=== PATIENT | female | born 1960 | race Caucasian/White ===

== ENCOUNTER 2017-01-08 14:27 | Emergency (ER) | payer OTHER, MEDICARE ==
[~2017-01-08] VITALS: Ht 157.5 cm; Wt 68.0 kg
[~2017-01-08 14:27] MED LIST: ALPRAZOLAM0.5 M4 PO; ASPIRIN81 M4 PO; ATIVAN0.5 MG PO; ATIVAN1 MG PO; ATORVASTATIN CA80 M1 PO; BUPROPION XL150 MG PO; COUMADIN 3 MG TA3 MG PO; COUMADIN 7.5 M7.5 MG PO; COUMADIN2.5 M1 PO; DILAUDID2 M1 PO; DOCUSATE SODIU100 MG PO; ESTRADIOL2 M1 PO; LAMICTAL100 M2 PO; LAMICTAL150 MG PO; LAMOTRIGINE100 M2 PO; LIPITOR40 M1 PO; METHADONE HYDROC5 MG PO; METHADONE PO; OXYCODONE-ACET1 EACH PO; PERCOCET 325 MG1 TA2 PO; PERCOCET 325 MG1 TAB PO; PERCOCET 5-3251 EACH PO; PLAVIX75 M1 PO; PREMARIN 1.251.25 MG PO; ROXICODONE15 MG PO; ROXICODONE30 MG PO; ROXICODONE5 MG PO; TYLENOL TAB 32325 MG PO; VITAMIN D250000 UNIT PO; WELLBUTRIN XL300 M2 PO; WELLBUTRIN XL300 MG PO; XANAX XR1 M1 PO; XANAX0.5 MG PO; XANAX1 M1 PO
--- NOTE | 2017-01-08 14:41 | ED UPPER/LOWER EXTREMITY COMPL ---
History of Present Illness General Chief Complaint: Lower Extremity Problems Stated Complaint: BILATERAL LEG PAIN S/P R LAZARA SURGURY 10/28 Source: patient Exam Limitations: no limitations Vital Signs & Intake/Output Vital Signs & Intake/Output Vital Signs Date Time Temp Pulse Resp B/P Pulse O2 O2 Flow FiO2 Ox Delivery Rate 01/08 1542 97.6 77 18 97 Room Air 01/08 1538 Room Air 01/08 1535 112/86 01/08 1459 96 Room Air 01/08 1431 98.1 87 18 153/100 96 Room Air Allergies Coded Allergies: tramadol (From ULTRA) (UNKNOWN 08/28/16) Reconcile Medications Alprazolam 0.5 MG TABLET 1 TAB PO BIDP PRN ANXIETY (Reported) Alprazolam (Xanax) 1 MG TABLET 2 TAB PO AT BEDTIME SLEEP HELP (Reported) Alprazolam (Xanax XR) 1 MG TAB.ER.24H 1 TAB PO BID ANXIETY (Reported) Atorvastatin Calcium (Lipitor) 40 MG TABLET 1 TAB PO DAILY heart health Bupropion HCl (Wellbutrin XL) 300 MG TAB.ER.24H 1 TAB PO DAILY MENTAL HEALTH (Reported) Bupropion HCl (Bupropion XL) 150 MG TAB.ER.24H 1 TAB PO QPM MENTAL HEALTH ( Reported) Ergocalciferol (Vitamin D2) (Vitamin D2) 50,000 UNIT CAPSULE 1 CAP PO QW vitamin deficiency (Reported) Estradiol 2 MG TABLET 1 TAB PO DAILY woman health (Reported) Hydromorphone HCl (Dilaudid) 2 MG TABLET 1-2 TAB PO Q4-6H PRN PAIN Lamotrigine 100 MG TABLET 1.5 TAB PO BID MENTAL HEALTH (Reported) [METHADONE] 100 MG PO D UNKNOWN (Reported) Warfarin Sodium (Coumadin) 2.5 MG TABLET 1-3 TAB PO DAILY ANTICOAGULATION PLEASE AWAIT SPECIFIC INSTRUCTIONS REGARDING DOSAGE OF COUMADIN. YOUR DOSE MAY CHANGE DAILY. Triage Note: RECEIVED 56 YO FEMALE BIBA FROM HOME. PT S/P RIGHT SHOULDER SURGURY 10/28, NEEDS REVISION ACCORDING TO PT NEX WEEK. PT C/O BILATERAL LOWER EXTREMITY PAIN ABOVE AND BELOW KNEES, LEFT LEG GREATER THAN RIGHT. IVETTE VASQUEZ IN TO EVALUATE PT UPON ARRIVAL TO ED Triage Nurses Notes Reviewed? yes HPI: Patient scheduled for a total shoulder arthroplasty Revision this week. She saw her orthopedic surgeon 2 days ago, she is 2 months status post total shoulder arthroplasty and states that"everything fell apart". She has been in a sling. She is taking oxycodone for pain, she has history of chronic pain and benzodiazepine use. She presents via ambulance to the emergency room for bilateral lower leg pain, she is concerned about blood clots, she has had pain in her legs left greater than right for the last 2 weeks but more severe over the last 1 week, she states that her legs get shaky and weak when she attempts to walk. Patient is very nonspecific as to where her pain is, initially she told me into the anterior lateral aspect of the leg and then she told me into the posterior aspect and then she noted she had pain in the calf and posterior leg on the left side. She has no swelling, no history of trauma. No neurologic symptoms. No back pain (CARLO ALTAMIRANO) Past History Travel History Traveled to [place] past 21 day No Medical History Any Pertinent Medical History? 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 FATHER (hyperlipidemia). Age 60+. Hx Contributory? No (CARLO ALTAMIRANO) Review of Systems Review of Systems Constitutional: Reports: see HPI. EENTM: Reports: no symptoms. Respiratory: Reports: no symptoms. Cardiovascular: Reports: no symptoms. Gastrointestinal/Abdominal: Reports: no symptoms. Genitourinary: Reports: no symptoms. Musculoskeletal: Reports: see HPI. Skin: Reports: no symptoms. Neurological/Psychological: Reports: no symptoms. Hematologic/Endocrine: Reports: no symptoms. Immunological: Reports: no symptoms. All Other Systems: Reviewed and Negative (CARLO ALTAMIRANO) Physical Exam Physical Exam General Appearance: well developed/nourished Comments: Well-developed well-nourished no apparent distress. HEENT: Atraumatic, extraocular motion intact Neck: Supple, no lymphadenopathy Back: Nontender Respiratory: No respiratory distress Extremities: No edema, full range of motion. Sling applied to the right upper extremity. Bilateral lower extremities, well-healed total knee replacement incisions bilaterally. No swelling no ecchymosis, no focal tenderness throughout the bilateral lower legs, negative Homans sign, no edema. Neurovascularly intact. Range of motion is full. Neuro: Alert and oriented x3 Psych: Mood affect normal, normal memory normal judgment. Skin: Warm and dry, no rash on exposed skin (TREVON VASQUEZ,CARLO) Progress Differential Diagnosis: arterial insufficiency, cellulitis, CHF, compartment syndrome, contusion, dislocation, DVT, fracture, gout, septic arthritis, sprain, tendon injury Plan of Care: Orders Procedure Date/time Status US-EXT BILAT VENOUS DOPPLER 01/08 1434 Active Diagnostic Imaging: Viewed by Me: Ultrasound. Discussed w/RAD: Ultrasound. Radiology Impression: PATIENT: PARRISH GALICIA PRESENT AGE: 56 PATIENT ACCOUNT NO: [id number] : 62 LOCATION: [facility] ORDERING PHYSICIAN: CARLO VASQUEZ SERVICE DATE: 01/08/17 EXAM TYPE : US - US-EXT BILAT VENOUS DOPPLER EXAMINATION: US TRIPLEX LOWER EXTREMITY, BILATERAL CLINICAL INFORMATION: 56-year-old female with the bilateral lower extremity leg pain. Postop. Evaluate for DVT. COMPARISON: None TECHNIQUE: Color- flow triplex imaging with spectral analysis and compression Doppler were performed on the bilateral lower extremities. FINDINGS: Somewhat technically limited study since patient was unable to cooperate at the time of the examination. Respiratory variation, normal compression and augmented flow are noted throughout the bilateral lower extremities. The visualized common femoral vein, superficial femoral vein, profunda femoral vein, popliteal vein and midcalf peroneal and posterior tibial venous segments show no evidence of deep venous thrombosis. There is no Tam's cyst. IMPRESSION: Normal triplex scan without evidence of deep venous thrombosis involving the bilateral lower extremities. Slightly technically limited study. DICTATED BY: JOLANTA CHRISTIANSON MD DATE/TIME DICTATED:01/08/171530 GARMENT MANUFACTURER:DANYELLE DATE/TIME TRANSCRIBED:01/08/171530 Comments: Ultrasounds are negative, questionable restless leg syndrome, discussed with patient, recommended following up with orthopedist or primary care doctor. She has pain medication at home (CARLO ALTAMIRANO) Departure Departure Disposition: HOME OR SELF CARE Condition: Stable Clinical Impression Primary Impression: Leg pain Qualifiers: Laterality: bilateral Qualified Codes: M79.604 - Pain in right leg; M79.605 - Pain in left leg Referrals: PATIENT HAS NO PRIMARY CARE DR (PCP/Family) Additional Instructions: follow up with your orthopedist or primary care doctor with any further concerns of pain or swelling in the legs. Departure Forms: Customer Survey General Discharge Information (CARLO ALTAMIRANO) PA/TRIPPER Co-Sign Statement Statement: ED Attending supervision documentation- [] I saw and evaluated the patient. I have also reviewed all the pertinent lab results and diagnostic results. I agree with the findings and the plan of care as documented in the PA's/TRIPPER's documentation. [X] I have reviewed the ED Record and agree with the PA's/TRIPPER's documentation. [] Additions or exceptions (if any) to the PAs/TRIPPER's note and plan are summarized below: [] (SOFIA GAITAN,VIET Ravi)
[2017-01-08 15:35] VITALS: BP 112/86
--- NOTE | 2017-01-08 15:35 | ULTRASOUND REPORT ---
EXAMINATION: US TRIPLEX LOWER EXTREMITY, BILATERAL CLINICAL INFORMATION: 56-year-old female with the bilateral lower extremity leg pain. Postop. Evaluate for DVT. COMPARISON: None TECHNIQUE: Color-flow triplex imaging with spectral analysis and compression Doppler were performed on the bilateral lower extremities. FINDINGS: Somewhat technically limited study since patient was unable to cooperate at the time of the examination. Respiratory variation, normal compression and augmented flow are noted throughout the bilateral lower extremities. The visualized common femoral vein, superficial femoral vein, profunda femoral vein, popliteal vein and midcalf peroneal and posterior tibial venous segments show no evidence of deep venous thrombosis. There is no Tam's cyst. IMPRESSION: Normal triplex scan without evidence of deep venous thrombosis involving the bilateral lower extremities. Slightly technically limited study.
[2017-01-10] MEDS ORDERED: ASPIRIN EC81 M1 PO (11:37)
== END 2017-01-08 15:54 ==
LOC: ERH 14:27
DX: M79.661 Pain in right lower leg (principal); M79.662 Pain in left lower leg
CPT/HCPCS: 93970

== ENCOUNTER 2017-01-12 00:01 | Observation (INO) | payer OTHER, MEDICARE ==
[~2017-01-12] VITALS: Ht 157.5 cm; Wt 68.9 kg
[~2017-01-12 00:01] MED LIST changes: +ASPIRIN EC81 M1 PO
--- NOTE | 2017-01-12 16:09 | Operative Report ---
Operative/Inv Procedure Report Surgery Date: 01/12/17 Name of Procedure: Right shoulder glenoid revision Pre-Operative Diagnosis: #1 glenoid fracture #2 glenoid instability Post-Operative Diagnosis: Same Estimated Blood Loss: 50ml to 100ml Surgeon/Radar Signal Processing Engineer: ENEDINA GAITAN,Cornell PRAJAPATI I Anesthesia: general endotracheal tube, block Implants: Reunion glenoid size 40 Drains: None Specimens: glenoid component Complications: None Condition: Stable Operative Indication: Patient is a 56-year-old woman who underwent a right total shoulder arthroplasty in October. 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 She progressed as expected with physical therapy. Then she experienced acute change in her pain. She denies any injuries. Evaluation revealed a possibility of a glenoid dislodgment. CAT scan was obtained to assess the glenoid integrity and to rule out fracture. This evaluation revealed fragmentation of the anterior glenoid and confirm the glenoid dislodgment. We discussed the findings with patient and recommended surgical evaluation of the anterior glenoid possible stabilization and revision of the glenoid component. Risks, benefits and expectations of this procedure which included but were not limited to persistent shoulder pain, instability, need for subsequent surgery, infection, injury to blood vessel or nerve and anesthesia risks. Patient wished to proceed with surgical management. Due to the dislodgment of the glenoid as well as some anatomical factors, we will have multiple options available for correction of this problem. Operative/Procedure Note Note: Patient was brought to the operating room and transferred to the operating room table. Once under appropriate anesthesia patient was placed into a beachchair position with all bony prominences well-padded. A bump was placed under the right scapula to facilitate exposure of the scapula. Right upper extremity was prepped and draped in standard fashion. Preoperative IV antibiotics were given prophylactically. A standard anterior incision was made for the planned deltopectoral approach. The incision was taken down sharply to the underlying fascia. The interval between the deltoid and pectoralis major was identified and a retractor was placed in this interval. Conjoined tendon was visualized and the extent of the coracoid process. I then identified the lower portion of the subscapularis and made an incision just medial to its insertion site leaving a good cuff of tissue to repair later on. This medial portion of the subscapularis/capsule was reflected medially and this exposed the joint and the total shoulder arthroplasty. The humeral head was removed from the shaft component to facilitate exposure of the glenoid. The glenoid component was visualized and removed small fragments of anterior glenoid bone were excised. I then prepared the glenoid surface. I removed cement from the peg holes of the glenoid. I elected to proceed with a keeled component instead of the peg holes based on my findings today. I used a bur to make a channel for the keeled component after identifying the position based on the guides. Holes were redrilled through the previous holes in the center and superior portion of the glenoid. The channel was then made with the bur. I was satisfied the preparation. I used the trial 40 glenoid which was a small is glenoid and match the previous size. I was satisfied after using the bur several times to make my channel deep enough. I removed the trial. Copious irrigation followed. I also used Gelfoam to facilitate hemostasis at the bony surfaces of the glenoid. Cement was being mixed on the back table. It was then applied to the surface of the glenoid and the channel of the keel. Cement was applied to the back of the glenoid component as well. This was then impacted in place. The size 40 glenoid was impacted in place. Excess cement was removed with curettes. Once the cement hardened small pieces of excess cement were removed. I then copiously irrigated the inner portion of the Samano taper and the original size 40 x 17 humeral component was impacted in place and the locking mechanism was confirmed. Shoulder was reduced. I was satisfied with the stability in all planes. Copious irrigation followed and followed every level of closure. The rotator interval and subscapularis was repaired. I tested the repair after was completed no tension on the repair with external rotation to greater than 50. Deltopectoral interval was closed with a running 0 Vicryl suture. Subcutaneous tissues closed with 2-0 Vicryl in an interrupted fashion and skin was closed with a running 2-0 nylon suture. Appropriate dressings were applied and patient was awakened and taken to recovery room in good condition. No intraoperative complications. Blood loss was approximately 100 mL Discharge Disposition: PACU
[2017-01-12 17:42] VITALS: BP 128/60
--- NOTE | 2017-01-12 17:53 | Patient Discharge Instructions ---
Discharge Instructions General Discharge Information You were seen/treated for: Right shoulder pain status post total shoulder arthroplasty, dislodged glenoid component You had these procedures: Revision glenoid Watch for these problems: Increasing pain, redness, warmth, swelling. Drainage of any type from incision. Inability to bear weight with right arm. And 1.5. Do not soak the wound: Yes No bath, but you may shower: Yes Special Instructions: Keep wound clean and dry Diet Continue normal diet: Yes Recommended Diet: Regular Additional DIET Information: Advance as tolerated Activity Full Activity/No Limits: No Activity Self Limited: Yes Pounds, do NOT lift more than: 5 Acute Coronary Syndrome Inclusion Criteria At DC or during hospital stay patient has or had the following: ACS DIAGNOSIS No Discharge Core Measures Meds if any: Prescribed or Continued at Discharge Meds if any: NOT Prescribed or Continued at Discharge Congestive Heart Failure Inclusion Criteria At DC or during hospital stay patient has or had the following: CHF DIAGNOSIS No Discharge Core Measures Meds if any: Prescribed or Continued at Discharge Meds if any: NOT Prescribed or Continued at Discharge Cerebrovascular accident Inclusion Criteria At DC or during hospital stay patient has or had the following: CVA/TIA Diagnosis No Discharge Core Measures Meds if any: Prescribed or Continued at Discharge Meds if any: NOT Prescribed or Continued at Discharge Venous thromboembolism Inclusion Criteria VTE Diagnosis No VTE Type NONE VTE Confirmed by (Test) NONE Discharge Core Measures - Per Current guidelines, there needs to be overlap - treatment for the first 5 days of Warfarin therapy. - If discharged on Warfarin prior to 5 days of - overlap therapy, the patient will need to be - assessed for post discharge needs including - *Post discharge parental anticoagulation - *Warfarin and/or parental anticoagulation education - *Follow up date to check INR post discharge At least 5 days overlap therapy as Inpatient No Meds if any: Prescribed or Continued at Discharge Note: Overlap Therapy is Warfarin and Anticoagulant Meds if any: NOT Prescribed or Continued at Discharge
--- NOTE | 2017-01-12 18:06 | NUR ---
PT UPTOT FLOOR AT 1735 VIA ROHAN FROM PACU. PT A/O X3, VSS. PT WITH IV TO LH #20 PATENT. IVF STARTED PER EMAR. R SHOULDER DRSG BULKY C/D/I. SLING ON TO R ARM. STRON R HAND GRASP. DURACOLD TO R SHOULDER TO SITE OF SX.CALL LOPES USE INSTRUCTED. PAIN MED GIVEN PER EMAR. PT VOIDED UPON ARRIVAL TO FLOOR, SISTER AT BEDSIDE. WILL MONITOR .
--- NOTE | 2017-01-12 18:12 | Surgical Discharge Summary ---
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 FATHER (hyperlipidemia). Age 60+. Psychosocial History Services at Home: None What is Your Primary Language? Nigerian Review of Systems: see H&P Hospital Course Course Attending Physician: ENEDINA GAITAN,JEEVAN Primary Care Physician: PATIENT HAS NO PRIMARY CARE DR Hospital Course: Patient was admitted to the hospital on 01/12/2017 for revision right total shoulder replacement, with replacement of the glenoid component. She tolerated the procedure well. She was transferred to a general surgical floor. Her diet was advanced and tolerated. Her vital signs were stable and within normal limits. Her pain was well controlled. She was deemed appropriate for discharge to home. 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 He would like for you to be seen in his office and 1-2 weeks from date of surgery. Medications at Discharge Discharge Medications: Stop taking the following medications: Aspirin (Ecotrin*) 81 MG TABLET.DR ORAL DAILY Continue taking these medications: Bupropion HCl (Wellbutrin XL) 300 MG TAB.ER.24H 1 Tablet ORAL DAILY Comments: Last Taken:10/26/16 Time:9AM Bupropion HCl (Bupropion XL) 150 MG TAB.ER.24H 1 Tablet ORAL Every night Qty = 30 Comments: Last Taken:10/26/16 Time:9AM Lamotrigine (Lamotrigine) 100 MG TABLET 1.5 Tablet ORAL TWICE DAILY Qty = 60 Comments: Last Taken:10/26/16 Time:9AM Ergocalciferol (Vitamin D2) (Vitamin D2) 50,000 UNIT CAPSULE 1 Capsule ORAL Once a Week Qty = 4 Comments: Last Taken: Time:NOT GIVEN ON THIS ADMISSION Estradiol (Estradiol) 2 MG TABLET 1 Tablet ORAL DAILY Qty = 30 Comments: Last Taken:10/26/16 Time:9AM [METHADONE] 100 Milligram ORAL Every Day Comments: Last Taken:10/26/16 Time:0630AM Alprazolam (Xanax XR) 1 MG TAB.ER.24H 1 Tablet ORAL TWICE DAILY Alprazolam (Xanax) 1 MG TABLET 2 Tablet ORAL AT BEDTIME Comments: Last Taken:10/26/16 Time:2PM
--- NOTE | 2017-01-12 18:24 | PN- Orthopedic ---
Subjective Subjective: A short reporting no acute postoperative events at this time. She is postoperative day 0 status post revision right total shoulder replacement, with replacement of glenoid component. She tolerated the procedure well. At the present time her pain is well controlled. She denies chest pain, shortness of breath, difficulty breathing. She denies nausea and vomiting. Objective Vital Signs and I&Os Vital Signs Date Time Temp Pulse Resp B/P Pulse O2 O2 Flow FiO2 Ox Delivery Rate 01/12 1742 98.6 82 06 128/60 92 Room Air Physical Exam: Gen.: Alert and oriented 3, no acute distress Cardiac: Regular rhythm and rate, S1-S2 Pulmonary: bilateral lung sounds clear to auscultation Abdomen: Soft and nontender, nondistended Extremities: Was all extremities, distal sensations grossly intact. Motor strength 5 out of 5 in upper extremity hand grasp right hand capillary refill brisk in all 5 fingers. Palpable radial and ulnar pulses. Bilateral calves soft and nontender. Surgical site: Shoulder. Dressing dry and intact. Assessment/Plan Assessment/Plan This is a 56-year-old female postoperative day 0 status post revision glenoid component of right total shoulder replacement. -Continue home medications -Advance diet as tolerated -Continue home dose of methadone -DVT ppx: ASA 325 daily -ABX ppx: Ancef x 1 additional dose -OOB as desired -Anticipate discharge to home tomorrow -Will discuss with Dr. Calvin Core Measures/Miscellaneous Venous Thromboembolism VTE Risk Factors: Age > 40, Surgery VTE Contraindications: No Contraindications VTE Diagnosis: No Beta Nicolle Is Beta Nicolle a Home Med? No Antibiotics Is Patient on Antibiotics? Yes
[2017-01-12 20:00] VITALS: BP 126/80
[2017-01-12 23:26] VITALS: BP 110/68
[2017-01-13 01:57] VITALS: BP 122/70
[2017-01-13 06:00] VITALS: BP 138/74
[2017-01-13 09:52] VITALS: BP 110/80
[2017-01-13] MEDS ORDERED: DILAUDID2 M1 PO (11:37)
[2017-01-13] MEDS ORDERED: OXYCONTIN20 M1 PO (11:45)
[2017-01-13] MEDS ORDERED: ASPIRIN EC325 M2 PO (12:12)
== END 2017-01-13 13:30 | disposition home health service (06) ==
LOC: ENRESERVDT → ENRESERVTM → STS 00:01 → PACUH 11:33 → 2NA 11:33
PROVIDERS: ADMIT Orthopaedic Surgery
DX: M96.69 Fracture of other bone following insertion of orthopedic implant, joint prosthesis, or bone plate (principal); Y83.8 Other surgical procedures as the cause of abnormal reaction of the patient, or of later complication, without mention of misadventure at the time of the procedure; T84.028A Dislocation of other internal joint prosthesis, initial encounter; M25.311 Other instability, right shoulder; R56.9 Unspecified convulsions
CPT/HCPCS: 1328; 1425; 1530; 1748; 6030; C1713; G0378; J0690; J2405